=== PATIENT | male | born 1955 | race Caucasian/White ===

== ENCOUNTER → 2018-09-25 | Outpatient (REF) | payer MEDICARE ==
[~2018-09-25] MED LIST: AMLO5TAB6 PO; ASPI1TAB PO; CELE40TA PO; METF10004 PO; METO1TAB7 PO; PERC5TAB12 PO; PRAV1TAB39 PO; SPIR-10 PO; TYLE325T5 PO; VITA100072 PO
== END ==
LOC: M LAB REF 16:58
PROVIDERS: ATTEND Internal Medicine Nephrology
DX: I15.0 Renovascular hypertension (principal)

== ENCOUNTER 2019-02-09 18:53 | Emergency (ER) | payer MEDICARE ==
[~2019-02-09] VITALS: Ht 180.3 cm; Wt 127.3 kg
[~2019-02-09 18:53] MED LIST changes: -ASPI1TAB PO; +ASPI81TA26 PO; +VITA100018 PO; -VITA100072 PO
[2019-02-09] MEDS ORDERED: IPRATROPIUM 0.5MG/ALBUTEROL 2.5MG INH SOL UD 3ML (DUONEB)(J7620) NEB ONE (19:45)
[2019-02-09] MEDS ORDERED: ALBUTEROL SULFATE 2.5 MG/0.5 ML INH NEB SOLN INH ONE (19:45)
[2019-02-09] MEDS ORDERED: dexameTHASONE 20 MG/5 ML VIAL (J1100) IV ONE (19:45)
[2019-02-09 20:07] LABS: ABG BASE EXCESS 0.9 (-2.0-2.0); ABG HCO3 24.6 MEQ/L (22.0-26.0); ABG PARTIAL PRESSURE CO2 36.5 mmHg (35.0-45.0); ABG PARTIAL PRESSURE O2 78.3 mmHg (75.0-100.0); ABG STANDARD HCO3 25.2 MEQ/L (22.0-26.0); ABG TOTAL CO2 25.7 MEQ/L (23.0-31.0); ABG pH (ARTERIAL) 7.447 UNITS (7.350-7.450)
[2019-02-09 20:09] LABS: BASO % 0.4 % (0.0-1.0); EOS % 0.1 % (0.0-3.0); HEMATOCRIT 39.1 % (42.0-52.0); HEMOGLOBIN 13.4 g/dl (13.5-17.5); LYMPH # 0.7 10^3/uL (1.5-4.5); LYMPH % 9.9 % (24.0-44.0); MEAN CORPUSCULAR HEMOGLOBIN 31.6 pg (27.0-33.0); MEAN CORPUSCULAR HGB CONC 34.3 g/dl (32.0-36.5); MEAN CORPUSCULAR VOLUME 92.2 fl (80.0-96.0); MONO # 0.4 10^3/uL (0.0-0.8); MONO % 5.8 % (0.0-5.0); NEUTROPHILS % 82.7 % (36.0-66.0); PLATELET COUNT, AUTOMATED 236 10^3/uL (150-450); RED BLOOD COUNT 4.24 10^6/uL (4.30-6.10); WHITE BLOOD COUNT 7.3 10^3/uL (4.0-10.0)
[2019-02-09 20:21] LABS: INR 1.03; PROTHROMBIN TIME 13.2 SECONDS (11.8-14.0)
[2019-02-09 20:24] LABS: D-DIMER QUANT 807.83 ng/ml (<500)
[2019-02-09] MEDS ORDERED: PROAAER10 INH (20:33)
[2019-02-09] MEDS ORDERED: FLON1SPR (20:33)
[2019-02-09] MEDS ORDERED: GLIP5TAB8 PO (20:33)
[2019-02-09] MEDS ORDERED: NIFE60TA40 PO (20:33)
[2019-02-09] MEDS ORDERED: ALLO10TA PO (20:33)
[2019-02-09] MEDS ORDERED: CLAR10CA3 PO (20:33)
[2019-02-09] MEDS ORDERED: FINA5TAB2 PO (20:33)
[2019-02-09] MEDS ORDERED: VALS1TAB49 PO (20:33)
[2019-02-09] MEDS ORDERED: CARV25TA PO (20:33)
[2019-02-09] MEDS ORDERED: POTA10808 PO (20:33)
[2019-02-09] MEDS ORDERED: hydrALAZINE INJ 20 MG/ML VIAL IV STA (20:39)
[2019-02-09 20:40] LABS: ALBUMIN 3.4 GM/DL (3.2-5.2); ALT/SGPT 26 U/L (12-78); BILIRUBIN,DIRECT < 0.1 MG/DL (0.0-0.2); BILIRUBIN,TOTAL 0.2 MG/DL (0.2-1.0); BLOOD UREA NITROGEN 19 MG/DL (7-18); CALCIUM LEVEL 8.4 MG/DL (8.8-10.2); CARBON DIOXIDE LEVEL 28 MEQ/L (21-32); CHLORIDE LEVEL 100 MEQ/L (98-107); CK-MB VALUE MASS 1.7 NG/ML (<3.6); CPK CREATINE PHOSPHOKINASE 202 U/L (39-308); CREATININE FOR GFR 1.44 MG/DL (0.70-1.30); GLOMERULAR FILTRATION RATE 52.6 (>49); GLUCOSE, FASTING 117 MG/DL (70-100); MB/CK RELATIVE INDEX 0.84 (< OR =4); NT-PRO BNP 358 PG/ML (<125); SODIUM LEVEL 138 MEQ/L (136-145); THYROID STIMULATING HORMONE 0.461 uIU/ML (0.358-3.740); TROPONIN I < 0.02 NG/ML (< 0.10)
[2019-02-09] MEDS ORDERED: ISOVUE-370 76% 100ML VIAL (Q9967) As Ordered ONE (21:21)
[2019-02-09 22:10] VITALS: BP 179/108
--- NOTE | 2019-02-09 22:13 | REPVR ---
EXAM: CT Head Without Contrast EXAM DATE/TIME: 02/09/2019 9:32 PM CLINICAL HISTORY: 63 years old, male; Pain; Headache TECHNIQUE: Imaging protocol: Axial computed tomography images of the head without contrast. Radiation optimization: All CT scans at this facility use at least one of these dose optimization techniques: automated exposure control; mA and/or kV adjustment per patient size (includes targeted exams where dose is matched to clinical indication); or iterative reconstruction. COMPARISON: MRI-Brain without Contrast 07/10/2015 3:59 PM FINDINGS: Brain: There is parenchymal volume loss. White matter changes are demonstrated in the subcortical, centrum semiovale and periventricular white matter consistent with small vessel white matter angiopathic gliosis. Ventricles: Normal. No ventriculomegaly. Bones/joints: Unremarkable. No acute fracture. Sinuses: Visualized sinuses are unremarkable. No fluid levels. Mastoid air cells: Visualized mastoid air cells are well aerated. No mastoid effusion. Soft tissues: Unremarkable. IMPRESSION: There is parenchymal volume loss. White matter changes are demonstrated in the subcortical, centrum semiovale and periventricular white matter consistent with small vessel white matter angiopathic gliosis. Electronically signed by: Taco Russell On 02/09/2019 22:13:28 PM
[2019-02-09] MEDS ORDERED: CARVedilol 12.5 MG TAB PO ONE (22:15)
[2019-02-09] MEDS ORDERED: **hydrALAZINE HCL** 25 MG TAB PO ONE (22:15)
--- NOTE | 2019-02-09 22:17 | REPVR ---
EXAM: CT Angiography Chest With Contrast EXAM DATE/TIME: 02/09/2019 9:32 PM CLINICAL HISTORY: 63 years old, male; Shortness of breath; Additional info: Chest pain/shortness of breath TECHNIQUE: Imaging protocol: Axial computed tomographic angiography images of the chest with intravenous contrast using CT angiography protocol. Coronal and sagittal reformatted images were created and reviewed. 3D rendering: MIP reconstructed images were created and reviewed. Radiation optimization: All CT scans at this facility use at least one of these dose optimization techniques: automated exposure control; mA and/or kV adjustment per patient size (includes targeted exams where dose is matched to clinical indication); or iterative reconstruction. Contrast material: ISOVUE 370; Contrast volume: 75 ml; Contrast route: IV; COMPARISON: CR Chest, 2 view PA, Lat 02/09/2019 7:44 PM FINDINGS: Pulmonary arteries: There are no pulmonary emboli. Aorta: The aorta demonstrates mild atherosclerotic calcification. There is no aortic dissection or aneurysm. Lungs: There is bibasilar compressive atelectasis. Lungs otherwise clear. Pleural space: Unremarkable. No pneumothorax. No pleural effusion. Heart: Unremarkable. No cardiomegaly. No pericardial effusion. Lymph nodes: Unremarkable. No enlarged lymph nodes. Bones/joints: The spine demonstrates mild degenerative changes. Soft tissues: Unremarkable. IMPRESSION: 1. There is no aortic dissection or aneurysm. 2. There are no pulmonary emboli. Electronically signed by: Taco Russell On 02/09/2019 22:17:51 PM
[2019-02-09] MEDS ORDERED: HYDR-3910 PO ×2 (23:22→23:43)
[2019-02-09 23:40] VITALS: BP 161/85
--- NOTE | 2019-02-10 09:14 | REP ---
PA and lateral chest: Comparison is the portable chest dated 07/10/2015. The lung stewart are clear. The cardiac size is normal. The sean, mediastinum, and skeletal structures are unremarkable. Impression: Negative PA and lateral chest. Electronically Signed by Miguel Nichols MD 02/10/2019 09:06 A
--- NOTE | 2019-02-11 06:48 | ECGEPIP ---
[facility] - ED Test Date: 2019-02-09 Pat Name: MAU ANDRADE Department: Room: - Gender: Male It Support Specialist: JANICE : [id number] Requested By: PHOENIX Mcdowell Order Number: [id number] Reading MD: Xavier Munoz Measurements Intervals [place] Rate: 67 P: 33 CA: 180 QRS: QRSD: 101 T: 79 QT: 395 QTc: 419 Interpretive Statements SINUS RHYTHM LEFT ATRIAL ENLARGEMENT BORDERLINE LEFT AXIS DEVIATION LEFT VENTRICULAR HYPERTROPHY AND ST-T CHANGE NO PRIORS FOR COMPARISON Electronically Signed on 02-11-2019 6:48:05 EDT by Xavier Munoz
== END 2019-02-09 23:50 | disposition home or self-care (01) ==
LOC: M ED 18:53
DX: I10 Essential (primary) hypertension (principal); R05 Cough; E11.9 Type 2 diabetes mellitus without complications; E78.5 Hyperlipidemia, unspecified; N40.0 Benign prostatic hyperplasia without lower urinary tract symptoms; M10.9 Gout, unspecified; Z88.8 Allergy status to other drugs, medicaments and biological substances; Z79.899 Other long term (current) drug therapy; Z79.82 Long term (current) use of aspirin; Z79.84 Long term (current) use of oral hypoglycemic drugs
CPT/HCPCS: 36600; 70450; 71046; 71275; 80048; 80076; 82550; 82553; 82803; 83880; 84443; 84484; 85025; 85379; 85610; 87040; 93005; 93041; 94640; 96374; 96375; 99285; J1100; Q9967

== ENCOUNTER → 2019-06-25 | Outpatient (REF) | payer MEDICARE ==
[~2019-06-25] MED LIST changes: +ALLO10TA PO; +CARV25TA PO; +CLAR10CA3 PO; +FINA5TAB2 PO; +FLON1SPR; +GLIP5TAB8 PO; +HYDR-3910 PO; +NIFE60TA40 PO; +POTA10808 PO; +PROAAER10 INH; +VALS1TAB49 PO
[2019-06-25 14:14] LABS: FREE T4 0.96 NG/DL (0.76-1.46); THYROID STIMULATING HORMONE 1.68 uIU/ML (0.358-3.740)
== END ==
LOC: M LAB REF 13:15
PROVIDERS: ATTEND Internal Medicine Nephrology
DX: E03.9 Hypothyroidism, unspecified (principal)

== ENCOUNTER → 2021-03-31 | Outpatient (REF) | payer MEDICARE ==
[~2021-03-31] MED LIST changes: +AMLO1TAB24 PO; -AMLO5TAB6 PO; -VALS1TAB49 PO; +VALS40TA9 PO
== END ==
LOC: M LAB REF 12:55
PROVIDERS: ATTEND Internal Medicine Nephrology
DX: E83.42 Hypomagnesemia (principal)

== ENCOUNTER 2025-04-14 18:07 | Observation (INO) | payer MEDICARE ==
[~2025-04-14 18:07] MED LIST changes: -FLON1SPR; +FLON1SPR NARES; +GLIP5TAB17 PO; -GLIP5TAB8 PO; -HYDR-3910 PO; +HYDR25TA87 PO; -NIFE60TA40 PO; +NIFE60TA96 PO; +POTA10807 PO; -POTA10808 PO
[2025-04-14 23:00] VITALS: BP 130/66; TEMP 98.7; O2SAT 97
[2025-04-15 00:45] LABS: PLATELET COUNT, AUTOMATED 331 10^3/uL (150-450)
[2025-04-15 00:58] LABS: ALT/SGPT 34.0 U/L (7.0-40); AST/SGOT 30.0 U/L (<34); CALCIUM LEVEL 10.2 MG/DL (8.3-10.6); CARBON DIOXIDE LEVEL 24.0 MMOL/L (20-31); CHLORIDE LEVEL 102.0 MMOL/L (98-107); CREATININE FOR GFR 1.24 MG/DL (0.70-1.30); GLOMERULAR FILTRATION RATE 62.6 (>42); POTASSIUM SERUM 4.6 MMOL/L (3.5-5.1); SODIUM LEVEL 139.0 MMOL/L (136-145)
[2025-04-15 01:02] LABS: FREE T4 1.27 NG/DL (0.89-1.76)
[2025-04-15] MEDS: levETIRAcetam INJection 500 MG in DEXTROSE 5% (D5W) MINI-BAG PLU 100 ML IV ONE (01:27)
[2025-04-15] MEDS: ONDANSETRON 4MG/2ML VIAL IV PRN (01:27)
[2025-04-15] MEDS ORDERED: FLUTICASONE PROPIONATE 0.05% NASAL SPRAY 16 GM NARES PRN (03:05)
[2025-04-15] MEDS ORDERED: GLUCAGON INJ 1 MG VIAL SC PRN (03:05)
[2025-04-15] MEDS ORDERED: LORATADINE 10 MG TAB PO PRN (03:05)
[2025-04-15] MEDS ORDERED: GLUCOSE 4 GM CHEW PO PRN (03:05)
[2025-04-15] MEDS ORDERED: IPRATROPIUM 0.5 MG/ALBUTEROL 2.5 MG INH SOL UD 3 ML NEB PRN (03:05)
[2025-04-15] MEDS ORDERED: DEXTROSE 50% 50 ML SYRINGE IV PRN (03:05)
[2025-04-15] MEDS ORDERED: ACET-907 PO (03:54)
[2025-04-15] MEDS ORDERED: ALBU8.5H INH (03:54)
[2025-04-15] MEDS ORDERED: ONDA-83 PO (03:54)
[2025-04-15] MEDS ORDERED: ROSU40TA81 PO (03:54)
[2025-04-15] MEDS ORDERED: VALS1TAB67 PO (03:54)
[2025-04-15 04:00] VITALS: BP 130/85; TEMP 98.7; O2SAT 93
[2025-04-15] MEDS ORDERED: HUMI40IN2 SC (04:05)
[2025-04-15] MEDS ORDERED: HYDR-3363 PO (04:05)
[2025-04-15] MEDS ORDERED: CLOP75TA2 PO (04:05)
[2025-04-15] MEDS ORDERED: ASPI81CH33 PO (04:05)
[2025-04-15] MEDS ORDERED: JARD1TAB3 PO (04:05)
[2025-04-15] MEDS ORDERED: METF500T13 PO (04:07)
[2025-04-15 04:20] LABS: APPEARANCE, URINE CLEAR (CLEAR); BACTERIA, URINE AUTO NEGATIVE (NEGATIVE); BILIRUBIN, URINE AUTO NEGATIVE (NEGATIVE); BLOOD, URINE BLOOD NEGATIVE (NEGATIVE); GLUCOSE, URINE (UA) AUTO 3+ mg/dL (NEGATIVE); KETONE, URINE AUTO NEGATIVE (NEGATIVE); LEUKOCYTE ESTERASE, URINE AUTO 1+ (NEGATIVE); NITRITE, URINE AUTO NEGATIVE (NEGATIVE); PROTEIN, URINE AUTO NEGATIVE (NEGATIVE); RBC, URINE AUTO 1 /HPF (0-3); SPECIFIC GRAVITY URINE AUTO 1.015 (1.002-1.035); SQUAMOUS EPITHELIAL CELL UR AU 2 /HPF (0-6); UROBILINOGEN, URINE AUTO 0.2 mg/dL (0.0-2.0); WBC, URINE AUTO 9 /HPF (0-3)
[2025-04-15] MEDS ORDERED: GLIP10TA15 PO (04:20)
[2025-04-15] MEDS ORDERED: SEMA2PEN SC (04:20)
[2025-04-15] MEDS ORDERED: HOME MED LIST COMPLETE! XX SCH (04:25)
[2025-04-15 05:59] LABS: PLATELET COUNT, AUTOMATED 334 10^3/uL (150-450)
[2025-04-15 06:23] LABS: ALT/SGPT 32.0 U/L (7.0-40); AST/SGOT 29.0 U/L (<34); CALCIUM LEVEL 9.6 MG/DL (8.3-10.6); CARBON DIOXIDE LEVEL 24.0 MMOL/L (20-31); CHLORIDE LEVEL 105.0 MMOL/L (98-107); CREATININE FOR GFR 1.38 MG/DL (0.70-1.30); GLOMERULAR FILTRATION RATE 55.0 (>42); POTASSIUM SERUM 4.3 MMOL/L (3.5-5.1); SODIUM LEVEL 140.0 MMOL/L (136-145)
[2025-04-15] MEDS ORDERED: ACETAMINOPHEN 325 MG TAB PO PRN (07:20)
[2025-04-15] MEDS: INSULIN LISPRO (NovoLOG) PER UNIT SC SCH (07:30)
[2025-04-15 08:15] VITALS: BP 142/84; TEMP 98.1; O2SAT 94
[2025-04-15] MEDS: ASPIRIN 81 MG CHEWABLE TABLET PO SCH (08:41)
[2025-04-15] MEDS: SPIRONOLACTONE 25 MG TAB PO SCH (08:41)
[2025-04-15] MEDS: CLOPIDOGREL 75 MG TAB PO SCH (08:42)
[2025-04-15] MEDS: ROSUVASTATIN 10 MG TAB PO SCH (08:42)
[2025-04-15] MEDS: FINASTERIDE 5 MG TAB PO SCH (08:43)
[2025-04-15] MEDS: LORATADINE 10 MG TAB PO SCH (08:43)
[2025-04-15] MEDS: NIFEdipine 30 MG XL TAB PO SCH (08:43)
[2025-04-15] MEDS ORDERED: **hydrALAZINE HCL** 25 MG TAB PO SCH (09:00)
[2025-04-15] MEDS ORDERED: FINASTERIDE 5 MG TAB PO SCH (09:00)
[2025-04-15] MEDS ORDERED: VALSARTAN 40MG TABLET PO SCH (09:00)
[2025-04-15] MEDS ORDERED: ASPIRIN 81 MG CHEWABLE TABLET PEG SCH (09:00)
[2025-04-15] MEDS ORDERED: NIFEdipine 30 MG XL TAB PO SCH ×2 (09:00)
[2025-04-15] MEDS: FLUTICASONE PROPIONATE 0.05% NASAL SPRAY 16 GM NARES SCH (10:31)
[2025-04-15 10:32] VITALS: BP 142/84
[2025-04-15] MEDS: VALSARTAN 80MG TAB PO SCH (10:32)
[2025-04-15 11:48] VITALS: BP 141/72; TEMP 97.6; O2SAT 93
[2025-04-15] MEDS ORDERED: PROHANCE 279.3MG/ML 5ML VIAL As Ordered ONE (12:38)
[2025-04-15] MEDS ORDERED: PROHANCE 279.3MG/ML 15ML VIAL As Ordered ONE (12:39)
[2025-04-15] MEDS ORDERED: HEPARIN SOD 5000 UNITS/ML 1 ML VIAL/SYRINGE SQ SCH (14:00)
[2025-04-15] MEDS ORDERED: KEPP250T5 PO (15:47)
[2025-04-15] MEDS ORDERED: INSULIN LISPRO (NovoLOG) PER UNIT SC SCH (21:00)
[2025-04-15] MEDS ORDERED: PRAVASTATIN 20 MG TAB PO SCH (21:00)
== END 2025-04-15 17:58 | disposition home or self-care (01) ==
LOC: PREINTOOBSV 18:47 → M PCU 23:13 → PREOBSVTOIN 23:32
PROVIDERS: ADMIT General Practice; ATTEND General Practice
DX: R41.82 Altered mental status, unspecified (principal); R56.9 Unspecified convulsions; R13.10 Dysphagia, unspecified; D72.829 Elevated white blood cell count, unspecified; J44.9 Chronic obstructive pulmonary disease, unspecified; J30.9 Allergic rhinitis, unspecified; M10.9 Gout, unspecified; I10 Essential (primary) hypertension; F39 Unspecified mood [affective] disorder; E11.9 Type 2 diabetes mellitus without complications; I69.931 Monoplegia of upper limb following unspecified cerebrovascular disease affecting right dominant side; R79.89 Other specified abnormal findings of blood chemistry; N40.0 Benign prostatic hyperplasia without lower urinary tract symptoms; Z99.89 Dependence on other enabling machines and devices; Z79.899 Other long term (current) drug therapy; Z79.84 Long term (current) use of oral hypoglycemic drugs; Z88.8 Allergy status to other drugs, medicaments and biological substances; Z79.82 Long term (current) use of aspirin; Z79.02 Long term (current) use of antithrombotics/antiplatelets
CPT/HCPCS: 36415; 70450; 70553; 71045; 80053; 81001; 83605; 84145; 84439; 84443; 84484; 85027; 87040; 87486; 87581; 87633; 87798; 92610; 93005; 95819; 96365; 96375; A9576; G0378; G0379; J1953; J2405

== ENCOUNTER → 2025-05-29 | Outpatient (REF) ==
[~2025-05-29] MED LIST changes: +ACET-907 PO; +ALBU8.5H INH; +ASPI81CH33 PO; +CLOP75TA2 PO; +GLIP10TA15 PO; +HUMI40IN2 SC; +HYDR-3363 PO; +JARD1TAB3 PO; +KEPP250T5 PO; +METF500T13 PO; +ONDA-83 PO; +ROSU40TA81 PO; +SEMA2PEN SC; +VALS1TAB67 PO
== END ==
LOC: M CFLAB 14:30
DX: Z01.89 Encounter for other specified special examinations (principal)

== ENCOUNTER → 2025-06-10 | Outpatient (REF) | LOC: M CFLAB 11:56 | DX: N39.0 Urinary tract infection, site not specified (principal) ==

== ENCOUNTER 2025-07-04 12:17 | Inpatient (IN) | payer MEDICARE ==
[~2025-07-04] VITALS: Ht 180.3 cm; Wt 102.8 kg
[~2025-07-04 12:17] MED LIST changes: -ENOXAPARIN 40 MG/0.4 ML SYRINGE (J1650 PER 10MG) SC SCH; -FLUC100T3 PO; -LEVE750XR PO; -TAMS1CAP17 PO; -med rec comment
[2025-07-04 17:10] VITALS: BP 109/67; TEMP 97.9; O2SAT 95
[2025-07-04] MEDS ORDERED: HEPARIN SOD 5000 UNITS/ML 1 ML VIAL/SYRINGE SC SCH (17:30)
[2025-07-04] MEDS ORDERED: GLUCOSE 4 GM CHEW PO PRN (17:40)
[2025-07-04] MEDS ORDERED: DEXTROSE 50% 50 ML SYRINGE IV PRN (17:40)
[2025-07-04] MEDS ORDERED: GLUCAGON INJ 1 MG VIAL SC PRN (17:40)
[2025-07-04 19:33] VITALS: BP_SYST 101; BP_SYST 132; BP_DIAS 57; BP_DIAS 67; TEMP 97.1; TEMP 98.6; O2SAT 93; O2SAT 94
[2025-07-04 19:44] LABS: BASO # 0.0 10^3/uL (0.0-0.2); BASO % 0.3 % (0.0-1.0); EOS # 0.0 10^3/uL (0.0-0.5); EOS % 0.1 % (0.0-3.0); LYMPH # 2.1 10^3/uL (1.5-5.0); LYMPH % 17.4 % (24.0-44.0); MONO # 0.8 10^3/uL (0.0-0.8); MONO % 6.7 % (2.0-8.0); NEUTROPHILS # 9.0 10^3/uL (1.5-8.5); NEUTROPHILS % 75.2 % (36.0-66.0); PLATELET COUNT, AUTOMATED 311 10^3/uL (150-450)
[2025-07-04] MEDS ORDERED: TAMS1CAP17 PO (19:46)
[2025-07-04] MEDS ORDERED: LEVE750XR PO (19:46)
[2025-07-04] MEDS ORDERED: FLUC100T3 PO (19:46)
[2025-07-04] MEDS ORDERED: HOME MED LIST COMPLETE! XX SCH (19:50)
[2025-07-04] MEDS ORDERED: med rec comment (20:01)
[2025-07-04 20:09] LABS: ALT/SGPT 18.0 U/L (7.0-40); AST/SGOT 21.0 U/L (<34); CALCIUM LEVEL 9.0 MG/DL (8.3-10.6); CARBON DIOXIDE LEVEL 23.0 MMOL/L (20-31); CHLORIDE LEVEL 105.0 MMOL/L (98-107); CREATININE FOR GFR 1.39 MG/DL (0.70-1.30); GLOMERULAR FILTRATION RATE 54.2 (>42); POTASSIUM SERUM 4.8 MMOL/L (3.5-5.1); SODIUM LEVEL 139.0 MMOL/L (136-145)
[2025-07-04] MEDS: INSULIN LISPRO (NovoLOG) PER UNIT SC SCH (21:00)
[2025-07-04] MEDS: FINASTERIDE 5 MG TAB PO SCH (21:23)
[2025-07-04] MEDS: ROSUVASTATIN 10 MG TAB PO SCH (21:23)
[2025-07-04] MEDS: RAMELTEON 8 MG TAB PO SCH (21:23)
[2025-07-04] MEDS: metroNIDAZOLE 500 MG in IV 1 EA IV SCH (21:24)
[2025-07-04] MEDS: CEFEPIME HCL 2 GM in DEXTROSE 5% (D5W) ADV/MINI-BAG 50 ML IV SCH (21:24)
[2025-07-04] MEDS: HEPARIN SOD 5000 UNITS/ML 1 ML VIAL/SYRINGE SC SCH (21:26)
[2025-07-04] MEDS: NS (Normal Saline) 0.9% 1,000 ML IV SCH (21:26)
[2025-07-04] MEDS: PANTOPRAZOLE 40MG VIAL IV SCH (21:29)
[2025-07-05] VITALS: BP 125/58; TEMP 98.1; O2SAT 91
[2025-07-05 03:31] VITALS: BP 126/63; TEMP 97.3; O2SAT 95
[2025-07-05 06:01] LABS: PLATELET COUNT, AUTOMATED 291 10^3/uL (150-450)
[2025-07-05 06:26] LABS: ALT/SGPT 19.0 U/L (7.0-40); AST/SGOT 27.0 U/L (<34); CALCIUM LEVEL 8.9 MG/DL (8.3-10.6); CARBON DIOXIDE LEVEL 24.0 MMOL/L (20-31); CHLORIDE LEVEL 107.0 MMOL/L (98-107); CREATININE FOR GFR 1.3 MG/DL (0.70-1.30); GLOMERULAR FILTRATION RATE 58.7 (>42); POTASSIUM SERUM 4.6 MMOL/L (3.5-5.1); SODIUM LEVEL 141.0 MMOL/L (136-145)
[2025-07-05] MEDS: INSULIN LISPRO (NovoLOG) PER UNIT SC SCH (07:30)
[2025-07-05 07:51] VITALS: BP 129/69; TEMP 97.5; O2SAT 93
[2025-07-05] MEDS ORDERED: ASPIRIN 81 MG CHEWABLE TABLET PEG SCH (09:00)
[2025-07-05] MEDS ORDERED: CLOPIDOGREL 75 MG TAB PO SCH (09:00)
[2025-07-05] MEDS: MIRALAX *UNIT DOSE* 17 GM PACKET PO SCH (09:29)
[2025-07-05] MEDS: PANTOPRAZOLE 40MG VIAL IV SCH (09:29)
[2025-07-05] MEDS: SPIRONOLACTONE 50 MG TAB PO SCH (09:30)
[2025-07-05 11:41] VITALS: BP 119/63; TEMP 97.2; O2SAT 96
[2025-07-05] MEDS: NYSTATIN 100,000 UNITS/GM TOPICAL PWD 15 GM TOP SCH (13:09)
[2025-07-05] MEDS ORDERED: VANCOMYCIN HCL 1,000 MG, VIAL MATE ADAPTER 1 EACH in NS 250 ML IV SCH (14:20)
[2025-07-05 16:19] VITALS: BP 118/60; TEMP 97.2; O2SAT 92
[2025-07-05] MEDS: VANCOMYCIN HCL 1,500 MG, VIAL MATE ADAPTER 1 EACH in NS 500 ML IV ONE (16:22)
[2025-07-05 20:33] VITALS: BP 136/71; TEMP 98; O2SAT 96
[2025-07-05] MEDS: VANCOMYCIN HCL 750 MG, VIAL MATE ADAPTER 1 EACH in NS 250 ML IV SCH (22:26)
[2025-07-06 00:10] VITALS: BP 119/70; TEMP 98.7; O2SAT 97
[2025-07-06 03:49] VITALS: BP 134/64; TEMP 98; O2SAT 92
[2025-07-06 04:51] LABS: PLATELET COUNT, AUTOMATED 258 10^3/uL (150-450)
[2025-07-06 05:17] LABS: ALT/SGPT 51.0 U/L (7.0-40); AST/SGOT 63.0 U/L (<34); CALCIUM LEVEL 8.9 MG/DL (8.3-10.6); CARBON DIOXIDE LEVEL 22.0 MMOL/L (20-31); CHLORIDE LEVEL 106.0 MMOL/L (98-107); CREATININE FOR GFR 1.12 MG/DL (0.70-1.30); GLOMERULAR FILTRATION RATE 70.2 (>42); POTASSIUM SERUM 4.2 MMOL/L (3.5-5.1); SODIUM LEVEL 139.0 MMOL/L (136-145)
[2025-07-06 07:18] VITALS: BP 141/67; TEMP 97.2; O2SAT 92
[2025-07-06 11:53] VITALS: BP 130/70; TEMP 97; O2SAT 92
[2025-07-06 15:24] VITALS: BP 144/75; TEMP 97.2; O2SAT 96
[2025-07-06 19:52] VITALS: BP 133/68; TEMP 97.5; O2SAT 94
[2025-07-07 00:24] VITALS: BP 141/72; TEMP 98.3; O2SAT 92
[2025-07-07 04:26] VITALS: BP 154/70; TEMP 98.2; O2SAT 91
[2025-07-07 05:33] LABS: PLATELET COUNT, AUTOMATED 266 10^3/uL (150-450)
[2025-07-07 06:01] LABS: ALT/SGPT 90.0 U/L (7.0-40); AST/SGOT 96.0 U/L (<34); CALCIUM LEVEL 8.7 MG/DL (8.3-10.6); CARBON DIOXIDE LEVEL 21.0 MMOL/L (20-31); CHLORIDE LEVEL 103.0 MMOL/L (98-107); CREATININE FOR GFR 0.99 MG/DL (0.70-1.30); GLOMERULAR FILTRATION RATE 81.4 (>42); POTASSIUM SERUM 3.5 MMOL/L (3.5-5.1); SODIUM LEVEL 136.0 MMOL/L (136-145)
[2025-07-07 07:39] LABS: IRON (FE) 35.0 UG/DL (65-175); PERCENT SATURATION 16.1 % (19.7-50.0)
[2025-07-07 08:03] VITALS: BP 125/68; TEMP 97.6; O2SAT 97
[2025-07-07 12:11] VITALS: BP 138/73; TEMP 97.2; O2SAT 93
[2025-07-07] MEDS: FERROUS GLUCONATE 324 MG TAB PO SCH (12:36)
[2025-07-07 15:25] VITALS: BP 138/65; TEMP 97; O2SAT 93
[2025-07-07 20:33] VITALS: BP 123/65; TEMP 98.2; O2SAT 93
[2025-07-08] MEDS: guaiFENesin SYRUP 200 MG/10 ML UDC PO PRN (03:14)
[2025-07-08 03:29] VITALS: BP 139/67; TEMP 97.4; O2SAT 93
[2025-07-08 06:16] LABS: PLATELET COUNT, AUTOMATED 312 10^3/uL (150-450)
[2025-07-08 06:41] LABS: ALT/SGPT 93.0 U/L (7.0-40); AST/SGOT 79.0 U/L (<34); CALCIUM LEVEL 8.8 MG/DL (8.3-10.6); CARBON DIOXIDE LEVEL 22.0 MMOL/L (20-31); CHLORIDE LEVEL 102.0 MMOL/L (98-107); CREATININE FOR GFR 1.01 MG/DL (0.70-1.30); GLOMERULAR FILTRATION RATE 79.5 (>42); POTASSIUM SERUM 3.9 MMOL/L (3.5-5.1); SODIUM LEVEL 135.0 MMOL/L (136-145)
[2025-07-08 07:55] VITALS: BP 146/80; TEMP 97.7; O2SAT 94
[2025-07-08] MEDS ORDERED: PILL CUTTER 1 EACH XX ONE (09:47)
[2025-07-08 12:00] VITALS: BP 126/70; TEMP 97.9; O2SAT 95
[2025-07-08 16:32] VITALS: BP 157/84; TEMP 97.8; O2SAT 92
[2025-07-08 20:00] VITALS: BP 144/76; TEMP 97.6; O2SAT 93
[2025-07-08 23:26] VITALS: BP 149/70; TEMP 98.4; O2SAT 94
[2025-07-09 03:30] VITALS: BP 156/83; TEMP 97.7; O2SAT 95
[2025-07-09 06:19] LABS: PLATELET COUNT, AUTOMATED 319 10^3/uL (150-450)
[2025-07-09 06:29] LABS: ALT/SGPT 76.0 U/L (7.0-40); AST/SGOT 53.0 U/L (<34); CALCIUM LEVEL 8.8 MG/DL (8.3-10.6); CARBON DIOXIDE LEVEL 22.0 MMOL/L (20-31); CHLORIDE LEVEL 103.0 MMOL/L (98-107); CREATININE FOR GFR 1.0 MG/DL (0.70-1.30); GLOMERULAR FILTRATION RATE 80.5 (>42); POTASSIUM SERUM 3.9 MMOL/L (3.5-5.1); SODIUM LEVEL 135.0 MMOL/L (136-145)
[2025-07-09 07:56] VITALS: BP 165/86; TEMP 97; O2SAT 95
[2025-07-09 08:51] VITALS: BP 165/86
[2025-07-09 10:35] VITALS: BP 127/58; TEMP 98.3; O2SAT 96
== END 2025-07-09 11:50 | disposition left against medical advice (07) | DRG 698 ==
LOC: M PCU 16:51 → UNDOADMIN 17:29 → M PCU 17:29 → M MSPAV 07-09 10:31
PROVIDERS: ADMIT Student in an Organized Health Care Education/Training Program; ATTEND Internal Medicine
DX: T83.511A Infection and inflammatory reaction due to indwelling urethral catheter, initial encounter (principal); A41.9 Sepsis, unspecified organism; J18.9 Pneumonia, unspecified organism; G93.41 Metabolic encephalopathy; I69.351 Hemiplegia and hemiparesis following cerebral infarction affecting right dominant side; N17.9 Acute kidney failure, unspecified; K92.2 Gastrointestinal hemorrhage, unspecified; N39.0 Urinary tract infection, site not specified; F32.A Depression, unspecified; N18.30 Chronic kidney disease, stage 3 unspecified; E11.22 Type 2 diabetes mellitus with diabetic chronic kidney disease; I12.9 Hypertensive chronic kidney disease with stage 1 through stage 4 chronic kidney disease, or unspecified chronic kidney disease; M06.9 Rheumatoid arthritis, unspecified; G40.909 Epilepsy, unspecified, not intractable, without status epilepticus; E78.5 Hyperlipidemia, unspecified; R11.10 Vomiting, unspecified; N40.1 Benign prostatic hyperplasia with lower urinary tract symptoms; R33.9 Retention of urine, unspecified; D50.9 Iron deficiency anemia, unspecified; Z88.8 Allergy status to other drugs, medicaments and biological substances; Z79.899 Other long term (current) drug therapy; Z79.82 Long term (current) use of aspirin; Y84.6 Urinary catheterization as the cause of abnormal reaction of the patient, or of later complication, without mention of misadventure at the time of the procedure

== ENCOUNTER → 2025-07-04 | Outpatient (REF) ==
[~2025-07-04] MED LIST changes: +ENOXAPARIN 40 MG/0.4 ML SYRINGE (J1650 PER 10MG) SC SCH; +FLUC100T3 PO; +LEVE750XR PO; +TAMS1CAP17 PO; +med rec comment
[2025-07-04 17:15] VITALS: BP 109/65; TEMP 97.9; O2SAT 95
== END ==
LOC: M LABCFH 14:05
DX: Z01.89 Encounter for other specified special examinations (principal)